=== PATIENT | female | born 1970 | race African-American/Black ===

== ENCOUNTER 2020-09-16 06:30 | Emergency (ER) | payer MEDICARE, BC ==
[~2020-09-16 06:30] MED LIST: KEFLEX500 MG PO
[2020-09-16 07:09] LABS: HEMOGLOBIN 12.8 gm/dl (12.3-15.3); RED BLOOD COUNT 4.45 M/UL (4.00-5.10); WHITE BLOOD COUNT 8.2 K/UL (4.5-11.0)
[2020-09-16] MEDS ORDERED: ASPIRIN CHEWABL81 MG PO (12:18)
[2020-09-16] MEDS ORDERED: OMNICEF 300 MG300 MG PO ×2 (12:18→12:24)
[2020-09-16] MEDS ORDERED: LASIX40 MG PO (12:18)
[2020-09-16] MEDS ORDERED: NITROSTAT0.4 MG SL (12:18)
== END 2020-09-16 12:35 | disposition left against medical advice (07) ==
LOC: ER1 06:30
PROVIDERS: Family Medicine
DX: J18.9 Pneumonia, unspecified organism (principal); I44.7 Left bundle-branch block, unspecified; I21.4 Non-ST elevation (NSTEMI) myocardial infarction; J81.0 Acute pulmonary edema; I10 Essential (primary) hypertension; Z20.822 Contact with and (suspected) exposure to COVID-19; Z86.73 Personal history of transient ischemic attack (TIA), and cerebral infarction without residual deficits; Z53.20 Procedure and treatment not carried out because of patient's decision for unspecified reasons
CPT/HCPCS: 36415; 36600; 71045; 80053; 82550; 82553; 82803; 83605; 83880; 84439; 84443; 84484; 85025; 85379; 85610; 85730; 87040; 93005; 96365; 96367; 96375; 96376; 99285; J0696; J1644; J1940; Q9967; U0002